=== PATIENT | male | born 1955 | race Caucasian/White ===

== ENCOUNTER 2016-09-04 19:58 | Inpatient (IN) | payer MEDICAID, OTHER ==
[~2016-09-04] VITALS: Ht 175.3 cm; Wt 72.0 kg
[~2016-09-04 19:58] MED LIST: ACET-2123 PO; IBUP-2070 PO
[2016-09-04 21:04] LABS: BASOPHILS % (AUTO) 0.5 % (0.0-2.0); EOSINOPHILS % (AUTO) 0.7 % (1.0-6.0); HEMATOCRIT 42.6 % (41-53); HEMOGLOBIN 13.8 g/dL (13.5-17.5); LYMPHOCYTES # (AUTO) 2.9 K/uL (1.0-4.8); LYMPHOCYTES % (AUTO) 36.4 % (22.0-44.0); MEAN CORPUSCULAR HEMOGLOBIN 29.2 pg (26.0-34.0); MEAN CORPUSCULAR HGB CONC 32.5 G/dL (31.0-37.0); MEAN CORPUSCULAR VOLUME 90 fL (80-100); MONOCYTES # (AUTO) 0.6 K/uL (0.1-1.0); MONOCYTES % (AUTO) 6.9 % (2.0-9.0); NEUTROPHILS # (AUTO) 4.5 K/uL (1.8-7.7); NEUTROPHILS % (AUTO) 55.5 % (40.0-70.0); PLATELET COUNT (AUTO) 299 K/uL (150-450); RED BLOOD CELL COUNT(AUTO) 4.74 MIL/uL (4.50-5.90); RED CELL DISTRIBUTION WIDTH 13.9 % (11.5-14.5)
[2016-09-04 21:13] LABS: ANION GAP 10 mmol/L (8-16); CALCIUM, TOTAL 8.7 mg/dL (8.8-10.5); CARBON DIOXIDE 26 mmol/L (22-29); CHLORIDE 102 mmol/L (98-107); CREATININE 1.04 mg/dL (0.60-1.30); GLOMERULAR FILTR. RATE CALC > 60 mL/min (>60); POTASSIUM 4.2 mmol/L (3.5-5.1); SODIUM SERUM 138 mmol/L (136-145); UREA NITROGEN, BLOOD 14 mg/dL (7-18)
[2016-09-04 21:19] LABS: ALANINE AMINOTRANSFERASE 31 U/L (12-78); ALBUMIN 4.7 g/dL (3.4-5.0); ASPARTATE AMINOTRANSFERASE 34 U/L (15-37); BILIRUBIN,TOTAL 0.4 mg/dL (0.1-1.0); TOTAL PROTEIN, SERUM 7.8 g/dL (6.4-8.2)
[2016-09-04] MEDS ORDERED: LORazepam 2 MG TABLET PO ONE (21:30)
[2016-09-04] MEDS ORDERED: ZOLPIDEM TARTRATE 10 MG TABLET PO PRN (21:45)
[2016-09-04] MEDS ORDERED: OLANZapine 5 MG RAPDIS TABLET PO PRN (21:45)
[2016-09-04] MEDS ORDERED: LORazepam 2 MG TABLET PO PRN (21:45)
[2016-09-04 22:00] LABS: CHOL/HDL RATIO 2.7 (4.2-7.3)
[2016-09-04] MEDS ORDERED: HYDROCODONE/ACETAMINOPHEN 5-325 MG TABLET PO ONE (22:15)
[2016-09-04 23:08] LABS: ADD UA MICROSCOPIC NO; APPEARANCE,URINE CLEAR (CLEAR); GLUCOSE, URINE (UA) NEGATIVE (NEGATIVE); KETONES,URINE NEGATIVE (NEGATIVE); LEUKOCYTE ESTERASE ,URINE NEGATIVE (NEGATIVE); OCCULT BLOOD,URINE NEGATIVE (NEGATIVE); PROTEIN,URINE NEGATIVE (NEGATIVE)
[2016-09-04] MEDS ORDERED: IBUPROFEN 600 MG TABLET PO ONE (23:30)
[2016-09-04] MEDS ORDERED: SODIUM CHLORIDE 0.9% 1,000 ML IV ONE (23:30)
[2016-09-04] MEDS ORDERED: HYDROCODONE/ACETAMINOPHEN 10-325 MG TABLET PO ONE (23:30)
[2016-09-05] VITALS (10 sets, daily range): BP systolic 125–147; BP diastolic 69–87
[2016-09-05] MEDS ORDERED: ACETAMINOPHEN 325 MG TABLET PO PRN ×2 (11:30→12:15)
[2016-09-05] MEDS ORDERED: CloNIDine HCL 0.1 MG TABLET PO PRN (11:30)
[2016-09-05] MEDS ORDERED: CYANOCOBALAMIN 1,000 MCG/ML VIAL IM ONE (12:15)
[2016-09-05] MEDS ORDERED: TUBERCULIN, PURIFIED PROTEIN DERIVATIVE 5 TU/0.1 ML SYG ID ONE (12:15)
[2016-09-05] MEDS ORDERED: HydrOXYzine PAMOATE 50 MG CAPSULE PO PRN (12:15)
[2016-09-05] MEDS ORDERED: MAGNESIUM HYDROXIDE SUSPENSION 30 ML UDCUP PO PRN (12:15)
[2016-09-05] MEDS ORDERED: MAG HYDROX/AL HYDROX/SIMETH ES 30 ML SUSPENSION UDCUP PO PRN (12:15)
[2016-09-05] MEDS ORDERED: LOPERAMIDE HCL 2 MG CAPSULE PO PRN ×2 (12:15)
[2016-09-05] MEDS: HYDROCODONE/ACETAMINOPHEN 5-325 MG TABLET PO PRN ×2 (12:17→18:30)
[2016-09-05] MEDS: DIAZEPAM 10 MG TABLET PO PRN ×2 (13:10→16:22)
[2016-09-05] MEDS: THIAMINE HCL 100 MG TABLET PO SCH (16:21)
[2016-09-05] MEDS: IBUPROFEN 600 MG TABLET PO PRN (16:22)
[2016-09-05] MEDS: ACAMPROSATE CALCIUM 333 MG DR TABLET PO SCH (18:00)
[2016-09-05] MEDS ORDERED: QUEtiapine FUMARATE 200 MG TABLET PO SCH (21:00)
[2016-09-06] VITALS (8 sets, daily range): BP systolic 106–157; BP diastolic 61–97
[2016-09-06] MEDS: IBUPROFEN 600 MG TABLET PO PRN ×3 (03:38→18:13)
[2016-09-06] MEDS ORDERED: DIAZEPAM 10 MG TABLET PO PRN (07:00)
[2016-09-06] MEDS ORDERED: NALTREXONE HCL 50 MG TABLET PO SCH (09:00)
[2016-09-06] MEDS: ACAMPROSATE CALCIUM 333 MG DR TABLET PO SCH ×3 (09:00→17:57)
[2016-09-06] MEDS: AmLODIPine BESYLATE 2.5 MG TABLET PO SCH (09:00)
[2016-09-06] MEDS: THIAMINE HCL 100 MG TABLET PO SCH ×2 (09:15→17:57)
[2016-09-06] MEDS: DULoxetine HCL 20 MG CAPSULE PO SCH (09:15)
[2016-09-06] MEDS: MULTIVITAMINS WITH MINERALS, THERAPEUTIC TABLET PO SCH (09:15)
[2016-09-06] MEDS: FOLIC ACID 1 MG TABLET PO SCH (09:16)
[2016-09-06] MEDS: DIAZEPAM 10 MG TABLET PO SCH ×4 (09:16→21:55)
[2016-09-06] MEDS: HYDROCODONE/ACETAMINOPHEN 5-325 MG TABLET PO PRN ×2 (09:21→16:31)
[2016-09-06] MEDS: PROMETHAZINE HCL 25 MG TABLET PO PRN (11:23)
[2016-09-06] MEDS: QUEtiapine FUMARATE 100 MG TABLET PO PRN (11:27)
[2016-09-06] MEDS: DOCUSATE SODIUM 100 MG CAPSULE PO SCH (17:57)
[2016-09-07 08:00] VITALS: BP 129/85
[2016-09-07] MEDS: AmLODIPine BESYLATE 2.5 MG TABLET PO SCH (10:35)
[2016-09-07] MEDS: ACAMPROSATE CALCIUM 333 MG DR TABLET PO SCH ×3 (10:35→16:12)
[2016-09-07] MEDS: DOCUSATE SODIUM 100 MG CAPSULE PO SCH ×2 (10:37→16:12)
[2016-09-07] MEDS: MULTIVITAMINS WITH MINERALS, THERAPEUTIC TABLET PO SCH (10:37)
[2016-09-07] MEDS: DULoxetine HCL 20 MG CAPSULE PO SCH (10:37)
[2016-09-07] MEDS: FOLIC ACID 1 MG TABLET PO SCH (10:37)
[2016-09-07] MEDS: DIAZEPAM 10 MG TABLET PO SCH ×4 (10:38→21:20)
[2016-09-07] MEDS: THIAMINE HCL 100 MG TABLET PO SCH ×2 (10:38→16:12)
[2016-09-07] MEDS: IBUPROFEN 800 MG TABLET PO PRN ×2 (13:15→21:21)
[2016-09-07] MEDS: QUEtiapine FUMARATE 100 MG TABLET PO PRN (16:12)
[2016-09-07 16:39] VITALS: BP 139/97
[2016-09-07 19:33] VITALS: BP 128/80
[2016-09-07] MEDS: ACETAMINOPHEN 325 MG TABLET PO PRN (19:34)
[2016-09-07 20:33] VITALS: BP 124/81
[2016-09-07 21:20] VITALS: BP 137/79
[2016-09-07 22:20] VITALS: BP 131/71
[2016-09-08] VITALS (8 sets, daily range): BP systolic 130–151; BP diastolic 68–92
[2016-09-08] MEDS: ACETAMINOPHEN 325 MG TABLET PO PRN ×2 (02:45→16:19)
[2016-09-08] MEDS: IBUPROFEN 800 MG TABLET PO PRN ×3 (06:16→20:49)
[2016-09-08] MEDS: QUEtiapine FUMARATE 100 MG TABLET PO PRN ×2 (06:21→16:19)
[2016-09-08] MEDS ORDERED: DIAZEPAM 5 MG TABLET PO PRN (07:00)
[2016-09-08] MEDS: MULTIVITAMINS WITH MINERALS, THERAPEUTIC TABLET PO SCH (08:52)
[2016-09-08] MEDS: DIAZEPAM 5 MG TABLET PO SCH ×4 (08:52→20:48)
[2016-09-08] MEDS: FOLIC ACID 1 MG TABLET PO SCH (08:52)
[2016-09-08] MEDS: DOCUSATE SODIUM 100 MG CAPSULE PO SCH ×2 (08:52→16:19)
[2016-09-08] MEDS: THIAMINE HCL 100 MG TABLET PO SCH ×2 (08:52→16:19)
[2016-09-08] MEDS: DULoxetine HCL 30 MG CAPSULE PO SCH (08:53)
[2016-09-08] MEDS: AmLODIPine BESYLATE 2.5 MG TABLET PO SCH (09:00)
[2016-09-08] MEDS: ACAMPROSATE CALCIUM 333 MG DR TABLET PO SCH ×3 (09:00→16:21)
[2016-09-08] MEDS: HYDROCODONE/ACETAMINOPHEN 5-325 MG TABLET PO PRN (09:20)
[2016-09-08] MEDS: PROMETHAZINE HCL 25 MG TABLET PO PRN (09:20)
[2016-09-09] VITALS (8 sets, daily range): BP systolic 104–146; BP diastolic 55–84
[2016-09-09] MEDS: QUEtiapine FUMARATE 100 MG TABLET PO PRN ×3 (01:54→21:34)
[2016-09-09] MEDS: ACETAMINOPHEN 325 MG TABLET PO PRN (01:55)
[2016-09-09] MEDS: THIAMINE HCL 100 MG TABLET PO SCH ×2 (09:34→16:07)
[2016-09-09] MEDS: DOCUSATE SODIUM 100 MG CAPSULE PO SCH ×2 (09:34→16:07)
[2016-09-09] MEDS: DULoxetine HCL 30 MG CAPSULE PO SCH (09:34)
[2016-09-09] MEDS: MULTIVITAMINS WITH MINERALS, THERAPEUTIC TABLET PO SCH (09:35)
[2016-09-09] MEDS: ACAMPROSATE CALCIUM 333 MG DR TABLET PO SCH ×3 (09:35→16:07)
[2016-09-09] MEDS: AmLODIPine BESYLATE 2.5 MG TABLET PO SCH (09:36)
[2016-09-09] MEDS: DIAZEPAM 5 MG TABLET PO PRN ×2 (09:36→18:29)
[2016-09-09] MEDS: FOLIC ACID 1 MG TABLET PO SCH (09:37)
[2016-09-09] MEDS: IBUPROFEN 800 MG TABLET PO PRN ×2 (09:40→16:08)
[2016-09-09] MEDS: HYDROCODONE/ACETAMINOPHEN 5-325 MG TABLET PO PRN ×2 (13:46→21:44)
[2016-09-09] MEDS: PROMETHAZINE HCL 25 MG TABLET PO PRN (15:08)
[2016-09-10] VITALS (8 sets, daily range): BP systolic 111–132; BP diastolic 67–81
[2016-09-10] MEDS: IBUPROFEN 800 MG TABLET PO PRN ×3 (01:53→18:30)
[2016-09-10] MEDS: DOCUSATE SODIUM 100 MG CAPSULE PO SCH ×2 (09:20→16:56)
[2016-09-10] MEDS: ACAMPROSATE CALCIUM 333 MG DR TABLET PO SCH ×3 (09:20→16:56)
[2016-09-10] MEDS: THIAMINE HCL 100 MG TABLET PO SCH ×2 (09:20→16:56)
[2016-09-10] MEDS: MULTIVITAMINS WITH MINERALS, THERAPEUTIC TABLET PO SCH (09:20)
[2016-09-10] MEDS: FOLIC ACID 1 MG TABLET PO SCH (09:20)
[2016-09-10] MEDS: DULoxetine HCL 30 MG CAPSULE PO SCH (09:20)
[2016-09-10] MEDS: HYDROCODONE/ACETAMINOPHEN 5-325 MG TABLET PO PRN ×2 (09:29→16:57)
[2016-09-10] MEDS: QUEtiapine FUMARATE 100 MG TABLET PO PRN ×3 (09:29→21:01)
[2016-09-10] MEDS: AmLODIPine BESYLATE 2.5 MG TABLET PO SCH (09:38)
[2016-09-10] MEDS: ACETAMINOPHEN 325 MG TABLET PO PRN (12:38)
[2016-09-10] MEDS: GuaiFENesin/D-METHORPHAN [SUGAR-FREE] 200-20MG/10 ML SYRUP UDCUP PO PRN ×2 (16:57→22:03)
[2016-09-11] VITALS (7 sets, daily range): BP systolic 121–134; BP diastolic 70–84
[2016-09-11] MEDS: ACETAMINOPHEN 325 MG TABLET PO PRN ×2 (01:06→20:09)
[2016-09-11] MEDS: GuaiFENesin/D-METHORPHAN [SUGAR-FREE] 200-20MG/10 ML SYRUP UDCUP PO PRN ×4 (02:54→21:01)
[2016-09-11] MEDS: HYDROCODONE/ACETAMINOPHEN 5-325 MG TABLET PO PRN ×2 (02:55→12:21)
[2016-09-11] MEDS: IBUPROFEN 800 MG TABLET PO PRN ×2 (07:55→16:19)
[2016-09-11] MEDS: DULoxetine HCL 30 MG CAPSULE PO SCH (08:15)
[2016-09-11] MEDS: ACAMPROSATE CALCIUM 333 MG DR TABLET PO SCH ×3 (08:15→16:20)
[2016-09-11] MEDS: DOCUSATE SODIUM 100 MG CAPSULE PO SCH ×2 (08:15→16:20)
[2016-09-11] MEDS: FOLIC ACID 1 MG TABLET PO SCH (08:15)
[2016-09-11] MEDS: AmLODIPine BESYLATE 2.5 MG TABLET PO SCH (08:16)
[2016-09-11] MEDS: MULTIVITAMINS WITH MINERALS, THERAPEUTIC TABLET PO SCH (08:16)
[2016-09-11] MEDS: THIAMINE HCL 100 MG TABLET PO SCH ×2 (08:16→16:19)
[2016-09-11] MEDS: QUEtiapine FUMARATE 100 MG TABLET PO PRN ×2 (08:18→20:10)
[2016-09-11] MEDS: QUEtiapine FUMARATE 100 MG TABLET PO SCH (16:21)
[2016-09-12] VITALS: BP 117/71
[2016-09-12] MEDS: HYDROCODONE/ACETAMINOPHEN 5-325 MG TABLET PO PRN ×3 (00:05→21:33)
[2016-09-12] MEDS: IBUPROFEN 800 MG TABLET PO PRN ×3 (01:53→16:42)
[2016-09-12 05:05] VITALS: BP 120/72
[2016-09-12] MEDS: GuaiFENesin/D-METHORPHAN [SUGAR-FREE] 200-20MG/10 ML SYRUP UDCUP PO PRN ×3 (05:09→16:42)
[2016-09-12] MEDS: ACETAMINOPHEN 325 MG TABLET PO PRN ×3 (05:10→19:40)
[2016-09-12] MEDS: DULoxetine HCL 20 MG CAPSULE PO SCH (09:21)
[2016-09-12] MEDS: QUEtiapine FUMARATE 100 MG TABLET PO SCH ×2 (09:21→13:05)
[2016-09-12] MEDS: ACAMPROSATE CALCIUM 333 MG DR TABLET PO SCH ×3 (09:22→16:40)
[2016-09-12] MEDS: MULTIVITAMINS WITH MINERALS, THERAPEUTIC TABLET PO SCH (09:22)
[2016-09-12] MEDS: DOCUSATE SODIUM 100 MG CAPSULE PO SCH ×2 (09:22→16:40)
[2016-09-12] MEDS: FOLIC ACID 1 MG TABLET PO SCH (09:22)
[2016-09-12] MEDS: AmLODIPine BESYLATE 2.5 MG TABLET PO SCH (09:22)
[2016-09-12] MEDS: THIAMINE HCL 100 MG TABLET PO SCH ×2 (09:22→16:40)
[2016-09-12] MEDS: QUEtiapine FUMARATE 25 MG TABLET PO SCH (16:40)
[2016-09-12 16:42] VITALS: BP 136/76
[2016-09-12 19:40] VITALS: BP 129/79
[2016-09-12 21:34] VITALS: BP 125/69
[2016-09-13 01:43] VITALS: BP 119/68
[2016-09-13] MEDS: IBUPROFEN 800 MG TABLET PO PRN ×3 (01:43→16:05)
[2016-09-13] MEDS: GuaiFENesin/D-METHORPHAN [SUGAR-FREE] 200-20MG/10 ML SYRUP UDCUP PO PRN ×3 (01:44→18:09)
[2016-09-13 06:10] VITALS: BP 135/75
[2016-09-13] MEDS: ACETAMINOPHEN 325 MG TABLET PO PRN ×2 (06:12→18:10)
[2016-09-13 08:17] VITALS: BP 133/74
[2016-09-13] MEDS: MULTIVITAMINS WITH MINERALS, THERAPEUTIC TABLET PO SCH (08:33)
[2016-09-13] MEDS: ACAMPROSATE CALCIUM 333 MG DR TABLET PO SCH ×3 (08:33→16:04)
[2016-09-13] MEDS: FOLIC ACID 1 MG TABLET PO SCH (08:33)
[2016-09-13] MEDS: QUEtiapine FUMARATE 25 MG TABLET PO SCH ×3 (08:33→16:04)
[2016-09-13] MEDS: HYDROCODONE/ACETAMINOPHEN 5-325 MG TABLET PO PRN ×2 (08:33→20:10)
[2016-09-13] MEDS: THIAMINE HCL 100 MG TABLET PO SCH ×2 (08:33→16:04)
[2016-09-13] MEDS: DOCUSATE SODIUM 100 MG CAPSULE PO SCH ×2 (08:34→16:04)
[2016-09-13] MEDS: AmLODIPine BESYLATE 2.5 MG TABLET PO SCH (08:34)
[2016-09-13] MEDS: DULoxetine HCL 20 MG CAPSULE PO SCH (08:34)
[2016-09-13] MEDS ORDERED: DSS100 PO (14:47)
[2016-09-13] MEDS ORDERED: AMLO2.5T PO (14:48)
[2016-09-13] MEDS ORDERED: QUET25TA34 PO (14:57)
[2016-09-13] MEDS ORDERED: DULO60CA44 PO (14:57)
[2016-09-13] MEDS ORDERED: ACAM333T7 PO (14:57)
[2016-09-13 16:05] VITALS: BP 115/69
[2016-09-13 20:08] VITALS: BP 123/80
[2016-09-14] MEDS: IBUPROFEN 800 MG TABLET PO PRN (03:15)
[2016-09-14 03:16] VITALS: BP 120/79
[2016-09-14] MEDS: HYDROCODONE/ACETAMINOPHEN 5-325 MG TABLET PO PRN (06:18)
[2016-09-14] MEDS: GuaiFENesin/D-METHORPHAN [SUGAR-FREE] 200-20MG/10 ML SYRUP UDCUP PO PRN (07:12)
[2016-09-14] MEDS ORDERED: DULoxetine HCL 60 MG CAPSULE PO SCH (09:00)
== END 2016-09-14 07:25 | disposition home or self-care (01) | DRG 751 ==
LOC: EMS 20:01 → 3EI 22:30
PROVIDERS: ADMIT Psychiatry & Neurology Psychiatry; ATTEND Psychiatry & Neurology Psychiatry
DX: F33.2 Major depressive disorder, recurrent severe without psychotic features (principal); R45.851 Suicidal ideations; F25.9 Schizoaffective disorder, unspecified; I10 Essential (primary) hypertension; F31.9 Bipolar disorder, unspecified; G89.29 Other chronic pain; M19.90 Unspecified osteoarthritis, unspecified site; M79.7 Fibromyalgia; M54.9 Dorsalgia, unspecified; N40.0 Benign prostatic hyperplasia without lower urinary tract symptoms; M54.2 Cervicalgia; G43.909 Migraine, unspecified, not intractable, without status migrainosus; N43.3 Hydrocele, unspecified; D64.9 Anemia, unspecified; E87.6 Hypokalemia; F10.10 Alcohol abuse, uncomplicated; F41.9 Anxiety disorder, unspecified; Z91.19 Patient's noncompliance with other medical treatment and regimen; Z88.8 Allergy status to other drugs, medicaments and biological substances; Z90.49 Acquired absence of other specified parts of digestive tract; Z86.73 Personal history of transient ischemic attack (TIA), and cerebral infarction without residual deficits; Z82.5 Family history of asthma and other chronic lower respiratory diseases
CPT/HCPCS: 96360; 96361; 99285; G0480; J3420; J7030

== ENCOUNTER 2018-10-30 13:29 | Inpatient (IN) | payer MEDICAID, OTHER ==
[~2018-10-30] VITALS: Ht 175.3 cm; Wt 70.9 kg
[~2018-10-30 13:29] MED LIST changes: +ACAM333T7 PO; -ACET-2123 PO; +AMLO2.5T4 PO; +DSS100 PO; +DULO60CA44 PO; -IBUP-2070 PO; +QUET25TA34 PO
[2018-10-30] MEDS ORDERED: IBUP-1506 PO (13:51)
[2018-10-30] MEDS ORDERED: ACET-2247 PO (13:51)
[2018-10-30] MEDS ORDERED: MELA3TAB66 PO (13:51)
[2018-10-30 14:25] LABS: BASOPHILS % (AUTO) 0.6 % (0.0-2.0); EOSINOPHILS % (AUTO) 1.2 % (1.0-6.0); HEMATOCRIT 39.2 % (41-53); HEMOGLOBIN 13.3 g/dL (13.5-17.5); LYMPHOCYTES # (AUTO) 1.6 K/uL (1.0-4.8); LYMPHOCYTES % (AUTO) 24.3 % (22.0-44.0); MEAN CORPUSCULAR HEMOGLOBIN 30.9 pg (26.0-34.0); MEAN CORPUSCULAR HGB CONC 33.9 G/dL (31.0-37.0); MEAN CORPUSCULAR VOLUME 91 fL (80-100); MONOCYTES # (AUTO) 0.4 K/uL (0.1-1.0); MONOCYTES % (AUTO) 6.7 % (2.0-9.0); NEUTROPHILS # (AUTO) 4.3 K/uL (1.8-7.7); NEUTROPHILS % (AUTO) 67.2 % (40.0-70.0); PLATELET COUNT (AUTO) 274 K/uL (150-450); RED BLOOD CELL COUNT(AUTO) 4.29 MIL/uL (4.50-5.90); RED CELL DISTRIBUTION WIDTH 13.5 % (11.5-14.5)
[2018-10-30 14:27] LABS: ANION GAP 11 mmol/L (8-16); CALCIUM, TOTAL 8.7 mg/dL (8.8-10.5); CARBON DIOXIDE 27 mmol/L (22-29); CHLORIDE 102 mmol/L (98-107); CREATININE 1.13 mg/dL (0.60-1.30); GLOMERULAR FILTR. RATE CALC > 60 mL/min (>60); GLUCOSE,RANDOM 86 mg/dL (70-110); POTASSIUM 3.7 mmol/L (3.5-5.1); SODIUM SERUM 140 mmol/L (136-145); UREA NITROGEN, BLOOD 14 mg/dL (7-18)
[2018-10-30 14:33] LABS: ALANINE AMINOTRANSFERASE 74 U/L (12-78); ALBUMIN 4.3 g/dL (3.4-5.0); ALKALINE PHOSPHATASE 45 U/L (46-116); ASPARTATE AMINOTRANSFERASE 63 U/L (15-37); BILIRUBIN,TOTAL 0.7 mg/dL (0.1-1.0); TOTAL PROTEIN, SERUM 7.1 g/dL (6.4-8.2)
[2018-10-30 14:45] LABS: APPEARANCE,URINE CLEAR (CLEAR); BILIRUBIN,URINE NEGATIVE (NEGATIVE); GLUCOSE, URINE (UA) NEGATIVE (NEGATIVE); KETONES,URINE NEGATIVE (NEGATIVE); LEUKOCYTE ESTERASE ,URINE NEGATIVE (NEGATIVE); NITRATE,URINE NEGATIVE (NEGATIVE); OCCULT BLOOD,URINE NEGATIVE (NEGATIVE); PH,URINE 6.5 (5.0-8.0); PROTEIN,URINE NEGATIVE (NEGATIVE); UROBILINOGEN,URINE 0.2 mg/dL (<=1.0)
[2018-10-30 14:48] LABS: AMPHET/METH SCREEN,URINE NEGATIVE (NEGATIVE); BARBITURATE SCREEN, URINE NEGATIVE (NEGATIVE); BENZODIAZEPINES SCREEN,URINE NEGATIVE (NEGATIVE); CANNABINOID SCREEN,URINE NEGATIVE (NEGATIVE); COCAINE SCREEN,URINE NEGATIVE (NEGATIVE); METHADONE SCREEN, URINE NEGATIVE (NEGATIVE); OPIATE SCREEN,URINE NEGATIVE (NEGATIVE)
[2018-10-30 14:49] LABS: PHENCYCLIDINE SCREEN,URINE NEGATIVE (NEGATIVE)
[2018-10-30] MEDS ORDERED: TraMADol HCL 50 MG TABLET PO ONE (19:00)
[2018-10-30] MEDS: LORazepam 2 MG TABLET PO PRN (19:22)
[2018-10-30] MEDS ORDERED: DIAZEPAM 10 MG TABLET PO PRN (19:30)
[2018-10-30 22:30] VITALS: BP 151/81
[2018-10-30] MEDS: ZOLPIDEM TARTRATE 10 MG TABLET PO PRN (22:54)
[2018-10-30 23:30] VITALS: BP 138/82
[2018-10-31] VITALS (10 sets, daily range): BP systolic 128–141; BP diastolic 78–99
[2018-10-31] MEDS: LORazepam 2 MG TABLET PO PRN (00:02)
[2018-10-31] MEDS ORDERED: PNEUMOCOCCAL VACCINE POLYVALENT 0.5 ML VIAL [PPSV23] IM ONE (00:30)
[2018-10-31 06:47] LABS: CHOL/HDL RATIO 2.2 (4.2-7.3); FREE T4 (FREE THYROXINE) 0.83 ng/dL (0.76-1.46); THYROID STIMULATING HORMONE 1.13 uIU/mL (0.36-3.74)
[2018-10-31] MEDS ORDERED: DIAZEPAM 10 MG TABLET PO PRN (07:00)
[2018-10-31] MEDS ORDERED: MAGNESIUM HYDROXIDE SUSPENSION 30 ML UDCUP PO PRN (07:45)
[2018-10-31] MEDS ORDERED: LOPERAMIDE HCL 2 MG CAPSULE PO PRN (07:45)
[2018-10-31] MEDS ORDERED: ALBUTEROL SULFATE HFA 90 MCG/PUFF 8 GM INHALER IH PRN (07:45)
[2018-10-31] MEDS ORDERED: MAG HYDROX/AL HYDROX/SIMETH ES 30 ML SUSPENSION UDCUP PO PRN (07:45)
[2018-10-31] MEDS ORDERED: GuaiFENesin/D-METHORPHAN [SUGAR-FREE] 200-20MG/10 ML SYRUP UDCUP PO PRN (07:45)
[2018-10-31] MEDS ORDERED: ACETAMINOPHEN 325 MG TABLET PO PRN (07:45)
[2018-10-31] MEDS ORDERED: PETROLATUM,WHITE 28 GM JELLY TP PRN (07:45)
[2018-10-31] MEDS ORDERED: CloNIDine HCL 0.1 MG TABLET PO PRN (07:45)
[2018-10-31] MEDS ORDERED: DOCUSATE SODIUM 100 MG CAPSULE PO PRN (07:45)
[2018-10-31] MEDS ORDERED: NICOTINE 14 MG/24 HOUR PATCH TD PRN (07:45)
[2018-10-31] MEDS: IBUPROFEN 400 MG TABLET PO PRN ×2 (08:16→17:04)
[2018-10-31] MEDS: ONDANSETRON HCL 4 MG TABLET PO PRN (08:16)
[2018-10-31] MEDS: DIAZEPAM 10 MG TABLET PO SCH ×4 (08:16→21:15)
[2018-10-31] MEDS: OLANZapine 5 MG RAPDIS TABLET PO PRN (08:17)
[2018-10-31] MEDS: DULoxetine HCL 30 MG CAPSULE PO SCH (13:59)
[2018-11-01 02:30] VITALS: BP 160/95
[2018-11-01] MEDS: IBUPROFEN 400 MG TABLET PO PRN (02:53)
[2018-11-01 06:08] LABS: BASOPHILS % (AUTO) 0.8 % (0.0-2.0); EOSINOPHILS % (AUTO) 4.5 % (1.0-6.0); HEMATOCRIT 38.2 % (41-53); HEMOGLOBIN 12.7 g/dL (13.5-17.5); LYMPHOCYTES # (AUTO) 1.2 K/uL (1.0-4.8); LYMPHOCYTES % (AUTO) 24.2 % (22.0-44.0); MEAN CORPUSCULAR HEMOGLOBIN 30.8 pg (26.0-34.0); MEAN CORPUSCULAR HGB CONC 33.2 G/dL (31.0-37.0); MEAN CORPUSCULAR VOLUME 93 fL (80-100); MONOCYTES # (AUTO) 0.5 K/uL (0.1-1.0); MONOCYTES % (AUTO) 11.2 % (2.0-9.0); NEUTROPHILS # (AUTO) 2.9 K/uL (1.8-7.7); NEUTROPHILS % (AUTO) 59.3 % (40.0-70.0); PLATELET COUNT (AUTO) 216 K/uL (150-450); RED BLOOD CELL COUNT(AUTO) 4.12 MIL/uL (4.50-5.90); RED CELL DISTRIBUTION WIDTH 13.4 % (11.5-14.5)
[2018-11-01 06:23] LABS: HEMOGLOBIN A1C 5.1 % (4.5-6.2)
[2018-11-01 06:38] LABS: ALANINE AMINOTRANSFERASE 58 U/L (12-78); ALBUMIN 3.4 g/dL (3.4-5.0); ALKALINE PHOSPHATASE 40 U/L (46-116); ANION GAP 9 mmol/L (8-16); ASPARTATE AMINOTRANSFERASE 40 U/L (15-37); BILIRUBIN,TOTAL 0.6 mg/dL (0.1-1.0); CALCIUM, TOTAL 9.1 mg/dL (8.8-10.5); CARBON DIOXIDE 30 mmol/L (22-29); CHLORIDE 105 mmol/L (98-107); CHOL/HDL RATIO 2.6 (4.2-7.3); CHOLESTEROL 182 mg/dL (131-200); CREATININE 1.12 mg/dL (0.60-1.30); GLOMERULAR FILTR. RATE CALC > 60 mL/min (>60); GLUCOSE,RANDOM 89 mg/dL (70-110); HDL CHOLESTEROL 70 mg/dL (40-60); LDL CHOL (CALC.) 93 mg/dL (0-130); POTASSIUM 4.7 mmol/L (3.5-5.1); SODIUM SERUM 144 mmol/L (136-145); THYROID STIMULATING HORMONE 1.09 uIU/mL (0.36-3.74); TRIGLYCERIDES 97 mg/dL (15-150); UREA NITROGEN, BLOOD 22 mg/dL (7-18)
[2018-11-01 09:21] VITALS: BP 143/103
[2018-11-01] MEDS: DULoxetine HCL 30 MG CAPSULE PO SCH (09:23)
[2018-11-01] MEDS: TraMADol HCL 50 MG TABLET PO PRN ×2 (09:23→16:28)
[2018-11-01] MEDS: DIAZEPAM 10 MG TABLET PO SCH ×4 (09:23→21:57)
[2018-11-01] MEDS: VENLAFAXINE HCL 75 MG ER CAPSULE PO SCH (12:25)
[2018-11-01 16:00] VITALS: BP_SYST 157; BP_DIAS 90; BP_DIAS 91
[2018-11-01 16:25] VITALS: BP 157/91
[2018-11-01] MEDS: OLANZapine 5 MG RAPDIS TABLET PO PRN (16:28)
[2018-11-02 06:00] VITALS: BP 142/89
[2018-11-02 06:01] VITALS: BP 142/89
[2018-11-02] MEDS ORDERED: DIAZEPAM 5 MG TABLET PO PRN (07:00)
[2018-11-02 08:44] VITALS: BP 141/86
[2018-11-02] MEDS: ONDANSETRON HCL 4 MG TABLET PO PRN (08:45)
[2018-11-02] MEDS: TraMADol HCL 50 MG TABLET PO PRN ×2 (08:45→20:09)
[2018-11-02] MEDS: VENLAFAXINE HCL 75 MG ER CAPSULE PO SCH (08:46)
[2018-11-02] MEDS: DULoxetine HCL 30 MG CAPSULE PO SCH (08:46)
[2018-11-02] MEDS: DIAZEPAM 5 MG TABLET PO SCH ×4 (08:46→21:24)
[2018-11-02 16:00] VITALS: BP 153/94
[2018-11-02 16:04] VITALS: BP 153/94
[2018-11-02 20:08] VITALS: BP 143/70
[2018-11-03 01:58] VITALS: BP 141/82
[2018-11-03] MEDS: ZOLPIDEM TARTRATE 10 MG TABLET PO PRN ×2 (02:00→21:30)
[2018-11-03] MEDS: TraMADol HCL 50 MG TABLET PO PRN ×2 (02:11→12:56)
[2018-11-03] MEDS ORDERED: DIAZEPAM 5 MG TABLET PO PRN (07:00)
[2018-11-03] MEDS: OLANZapine 5 MG RAPDIS TABLET PO PRN ×2 (07:48→12:56)
[2018-11-03 08:55] VITALS: BP 149/87
[2018-11-03] MEDS: DULoxetine HCL 30 MG CAPSULE PO SCH (08:58)
[2018-11-03] MEDS: LORazepam 2 MG TABLET PO PRN ×2 (08:58→16:28)
[2018-11-03] MEDS: IBUPROFEN 400 MG TABLET PO PRN (08:58)
[2018-11-03] MEDS: VENLAFAXINE HCL 75 MG ER CAPSULE PO SCH (08:58)
[2018-11-03 12:54] VITALS: BP 136/78
[2018-11-03 13:06] VITALS: BP 136/78
[2018-11-03 17:56] VITALS: BP_SYST 145; BP_SYST 148; BP_DIAS 78
[2018-11-04 00:05] VITALS: BP 137/95
[2018-11-04] MEDS: TraMADol HCL 50 MG TABLET PO PRN ×2 (00:11→09:02)
[2018-11-04] MEDS: VENLAFAXINE HCL 150 MG ER CAPSULE PO SCH (09:00)
[2018-11-04] MEDS: DULoxetine HCL 30 MG CAPSULE PO SCH (09:01)
[2018-11-04 09:02] VITALS: BP 150/77
[2018-11-04] MEDS: LORazepam 2 MG TABLET PO PRN ×3 (09:06→17:58)
[2018-11-04] MEDS: OLANZapine 5 MG RAPDIS TABLET PO PRN ×3 (09:06→17:58)
[2018-11-04 12:19] VITALS: BP 136/68
[2018-11-04 12:41] VITALS: BP 132/87
[2018-11-04] MEDS: IBUPROFEN 400 MG TABLET PO PRN (13:27)
[2018-11-04 17:57] VITALS: BP 145/89
[2018-11-04 17:58] VITALS: BP 145/89
[2018-11-05 05:30] VITALS: BP 139/85
[2018-11-05] MEDS: TraMADol HCL 50 MG TABLET PO PRN ×2 (05:34→12:28)
[2018-11-05 08:38] VITALS: BP 140/66
[2018-11-05] MEDS: VENLAFAXINE HCL 150 MG ER CAPSULE PO SCH (08:58)
[2018-11-05] MEDS: DULoxetine HCL 30 MG CAPSULE PO SCH (08:58)
[2018-11-05] MEDS: LORazepam 2 MG TABLET PO PRN ×2 (09:00→16:18)
[2018-11-05 12:28] VITALS: BP 138/74
[2018-11-05 13:28] VITALS: BP 134/78
[2018-11-05] MEDS: OLANZapine 5 MG RAPDIS TABLET PO PRN (16:18)
[2018-11-05 16:37] VITALS: BP 146/97
[2018-11-06] MEDS: TraMADol HCL 50 MG TABLET PO PRN ×2 (03:29→20:12)
[2018-11-06] MEDS: LORazepam 2 MG TABLET PO PRN ×3 (03:29→18:10)
[2018-11-06 03:31] VITALS: BP 143/91
[2018-11-06] MEDS: VENLAFAXINE HCL 150 MG ER CAPSULE PO SCH (07:59)
[2018-11-06] MEDS: DULoxetine HCL 30 MG CAPSULE PO SCH (07:59)
[2018-11-06 08:02] VITALS: BP 132/80
[2018-11-06] MEDS: IBUPROFEN 400 MG TABLET PO PRN (08:02)
[2018-11-06] MEDS: ONDANSETRON HCL 4 MG TABLET PO PRN (08:53)
[2018-11-06] MEDS: OLANZapine 5 MG RAPDIS TABLET PO PRN ×2 (12:06→20:12)
[2018-11-06 16:50] VITALS: BP 130/79
[2018-11-06 20:12] VITALS: BP 135/86
[2018-11-06] MEDS: ZOLPIDEM TARTRATE 10 MG TABLET PO PRN (22:33)
[2018-11-07 02:43] VITALS: BP 138/81
[2018-11-07] MEDS: LORazepam 2 MG TABLET PO PRN ×3 (02:43→17:17)
[2018-11-07] MEDS: TraMADol HCL 50 MG TABLET PO PRN ×2 (02:43→17:18)
[2018-11-07] MEDS: VENLAFAXINE HCL 150 MG ER CAPSULE PO SCH (08:46)
[2018-11-07] MEDS: DULoxetine HCL 30 MG CAPSULE PO SCH (08:46)
[2018-11-07 10:00] VITALS: BP 133/74
[2018-11-07] MEDS: OLANZapine 5 MG RAPDIS TABLET PO PRN (14:17)
[2018-11-07 17:19] VITALS: BP 153/85
[2018-11-07] MEDS: ZOLPIDEM TARTRATE 10 MG TABLET PO PRN (20:10)
[2018-11-08] MEDS: LORazepam 2 MG TABLET PO PRN ×2 (02:57→12:29)
[2018-11-08] MEDS: TraMADol HCL 50 MG TABLET PO PRN (02:57)
[2018-11-08 02:58] VITALS: BP 154/83
[2018-11-08] MEDS: OLANZapine 5 MG RAPDIS TABLET PO PRN (06:54)
[2018-11-08] MEDS: VENLAFAXINE HCL 150 MG ER CAPSULE PO SCH (09:44)
[2018-11-08] MEDS: DULoxetine HCL 30 MG CAPSULE PO SCH (09:44)
[2018-11-08 12:25] VITALS: BP 142/80
[2018-11-08] MEDS: IBUPROFEN 400 MG TABLET PO PRN (12:30)
[2018-11-08] MEDS ORDERED: VENL-68 PO (14:54)
[2018-11-08] MEDS ORDERED: DULO30CA2 PO (14:54)
== END 2018-11-08 18:00 | disposition home or self-care (01) | DRG 751 ==
LOC: EMS 13:32 → 3EI 21:35
PROVIDERS: ADMIT Psychiatry & Neurology Psychiatry; ATTEND Psychiatry & Neurology Psychiatry
DX: F33.2 Major depressive disorder, recurrent severe without psychotic features (principal); R45.851 Suicidal ideations; D64.9 Anemia, unspecified; E78.5 Hyperlipidemia, unspecified; F10.10 Alcohol abuse, uncomplicated; Z71.51 Drug abuse counseling and surveillance of drug abuser; Z71.41 Alcohol abuse counseling and surveillance of alcoholic; G89.4 Chronic pain syndrome; I10 Essential (primary) hypertension; M79.7 Fibromyalgia; Z59.0 Homelessness; Z91.5 Personal history of self-harm; Z81.8 Family history of other mental and behavioral disorders; Z79.899 Other long term (current) drug therapy
CPT/HCPCS: 83036; 84439; 84443; G0480; Q0162

== ENCOUNTER 2018-11-14 16:06 | Emergency (ER) | payer MEDICAID, OTHER ==
[~2018-11-14] VITALS: Ht 175.3 cm; Wt 75.0 kg
[~2018-11-14 16:06] MED LIST changes: -ACAM333T7 PO; -AMLO2.5T4 PO; -DSS100 PO; +DULO30CA2 PO; -DULO60CA44 PO; -QUET25TA34 PO; +VENL-68 PO
[2018-11-14] MEDS ORDERED: SODIUM CHLORIDE 0.9% 1,000 ML IV ONE ×2 (17:45→19:45)
[2018-11-14] MEDS ORDERED: LORazepam 1 MG TABLET PO ONE (17:45)
[2018-11-14 17:56] LABS: BASOPHILS % (AUTO) 0.8 % (0.0-2.0); EOSINOPHILS % (AUTO) 2.7 % (1.0-6.0); HEMATOCRIT 38.3 % (41-53); HEMOGLOBIN 12.8 g/dL (13.5-17.5); LYMPHOCYTES # (AUTO) 1.6 K/uL (1.0-4.8); LYMPHOCYTES % (AUTO) 20.9 % (22.0-44.0); MEAN CORPUSCULAR HEMOGLOBIN 30.7 pg (26.0-34.0); MEAN CORPUSCULAR HGB CONC 33.4 G/dL (31.0-37.0); MEAN CORPUSCULAR VOLUME 92 fL (80-100); MONOCYTES # (AUTO) 0.7 K/uL (0.1-1.0); NEUTROPHILS # (AUTO) 4.9 K/uL (1.8-7.7); NEUTROPHILS % (AUTO) 65.6 % (40.0-70.0); PLATELET COUNT (AUTO) 295 K/uL (150-450); RED BLOOD CELL COUNT(AUTO) 4.16 MIL/uL (4.50-5.90); RED CELL DISTRIBUTION WIDTH 13.6 % (11.5-14.5)
[2018-11-14 18:15] VITALS: BP 154/98
[2018-11-14 18:16] LABS: ANION GAP 12 mmol/L (8-16); CALCIUM, TOTAL 9.3 mg/dL (8.8-10.5); CARBON DIOXIDE 23 mmol/L (22-29); CHLORIDE 99 mmol/L (98-107); CREATININE 1.25 mg/dL (0.60-1.30); GLOMERULAR FILTR. RATE CALC 58 mL/min (>60); GLUCOSE,RANDOM 116 mg/dL (70-110); POTASSIUM 3.6 mmol/L (3.5-5.1); SODIUM SERUM 134 mmol/L (136-145); UREA NITROGEN, BLOOD 19 mg/dL (7-18)
[2018-11-14 18:24] LABS: APPEARANCE,URINE CLEAR (CLEAR); BILIRUBIN,URINE NEGATIVE (NEGATIVE); GLUCOSE, URINE (UA) NEGATIVE (NEGATIVE); KETONES,URINE NEGATIVE (NEGATIVE); LEUKOCYTE ESTERASE ,URINE NEGATIVE (NEGATIVE); NITRATE,URINE NEGATIVE (NEGATIVE); OCCULT BLOOD,URINE NEGATIVE (NEGATIVE); PH,URINE 6.5 (5.0-8.0); PROTEIN,URINE NEGATIVE (NEGATIVE); UROBILINOGEN,URINE 0.2 mg/dL (<=1.0)
[2018-11-14 18:33] LABS: AMPHET/METH SCREEN,URINE NEGATIVE (NEGATIVE); BARBITURATE SCREEN, URINE NEGATIVE (NEGATIVE); BENZODIAZEPINES SCREEN,URINE NEGATIVE (NEGATIVE); CANNABINOID SCREEN,URINE NEGATIVE (NEGATIVE); COCAINE SCREEN,URINE NEGATIVE (NEGATIVE); METHADONE SCREEN, URINE NEGATIVE (NEGATIVE); OPIATE SCREEN,URINE NEGATIVE (NEGATIVE); PHENCYCLIDINE SCREEN,URINE NEGATIVE (NEGATIVE)
[2018-11-14 19:02] LABS: ALANINE AMINOTRANSFERASE 55 U/L (12-78); ALBUMIN 4.1 g/dL (3.4-5.0); ALKALINE PHOSPHATASE 38 U/L (46-116); ASPARTATE AMINOTRANSFERASE 48 U/L (15-37); BILIRUBIN,TOTAL 0.5 mg/dL (0.1-1.0); CREATINE KINASE, TOTAL ONLY 577 U/L (39-308); TOTAL PROTEIN, SERUM 7.2 g/dL (6.4-8.2)
[2018-11-14] MEDS ORDERED: KETOROLAC TROMETHAMINE 30 MG/ML VIAL IVP ONE (19:30)
== END 2018-11-14 20:16 | disposition left against medical advice (07) ==
LOC: EMS 16:09
DX: F41.9 Anxiety disorder, unspecified (principal); F19.10 Other psychoactive substance abuse, uncomplicated; F20.9 Schizophrenia, unspecified; M79.10 Myalgia, unspecified site; Z88.8 Allergy status to other drugs, medicaments and biological substances; Z79.899 Other long term (current) drug therapy
CPT/HCPCS: 36415; 80053; 80307; 81003; 82550; 85025; 96374; 99283; G0480; J1885; J7030